=== PATIENT | male | born 1970 | race Two or more races ===

== ENCOUNTER 2025-04-29 03:30 | Inpatient (IN) | payer OTHER ==
[~2025-04-29] VITALS: Ht 165.1 cm; Wt 65.8 kg
[2025-04-29] MEDS ORDERED: GRALISE600 MG PO (03:35)
[2025-04-29] MEDS ORDERED: ATIVAN1 M1 PO (03:35)
[2025-04-29] MEDS ORDERED: RESTORIL30 MG PO (03:36)
[2025-04-29] MEDS ORDERED: BUSPIRONE HCL10 MG PO (03:36)
[2025-04-29] MEDS ORDERED: ADVIL100 M1 PO (03:36)
[2025-04-29] MEDS ORDERED: PAXIL20 MG PO (03:36)
[2025-04-29] MEDS ORDERED: TRAZODONE HCL150 MG PO (03:37)
[2025-04-29] MEDS ORDERED: PEPCID AC20 MG PO (03:37)
[2025-04-29] MEDS ORDERED: ELAVIL PO (03:37)
[2025-04-29] MEDS ORDERED: PROTONIX40 MG PO (03:37)
[2025-04-29] MEDS ORDERED: DICY20TA PO (03:38)
[2025-04-29] MEDS ORDERED: TRAMADOL HCL E100 M1 PO (03:38)
[2025-04-29] MEDS ORDERED: TRICOR145 MG PO (03:38)
[2025-04-29] MEDS ORDERED: HUMALOG100 UNIT/2 SQ (03:39)
[2025-04-29] MEDS ORDERED: TOUJEO SOL300 UNIT/1 (03:39)
[2025-04-29] MEDS ORDERED: MORPHINE SULFATE 4 MG/ML VIAL IV STA (04:56)
[2025-04-29 06:08] LABS: BASO % 0.6 % (0.1-1.2); EOS # 0.20 (0.04-0.54); EOS % 1.0 % (0.7-7.0); LYMPH # 2.14 (1.18-3.74); LYMPH % 11.2 % (19.3-53.1); MEAN PLATELET VOLUME 10.00 fl (9.4-12.4); MONO # 1.28 (0.24-0.82); MONO % 6.7 % (4.7-12.5); NEUT # 15.37 (1.56-6.13); NEUT % 80.1 % (34.0-71.1); RED CELL DISTRIBUTION WIDTH 13.5 % (11.6-14.4)
[2025-04-29 06:30] LABS: INR 1.18
[2025-04-29 06:33] LABS: ALT/SGPT 8.0 U/L (12-78); AST/SGOT 12.0 U/L (15-37); BILIRUBIN TOTAL 0.37 mg/dL (0.3-1.2); BUN CREA RATIO 10.0 (7.0-25.0); CREATININE SERUM 0.91 mg/dL (0.70-1.30); GFR 87.15; GLOBULINA 4.9 G/DL (2.4-3.5); GLUCOSE FASTING 130.0 mg/dL (65-100); OSMOLALITY SERUM 284.0 MOSM/KG (275-295)
[2025-04-29] MEDS ORDERED: 0.9 % SODIUM CHLORIDE 1,000 ML IV STA (06:48)
[2025-04-29] MEDS ORDERED: PIPERACILLIN/TAZOBACTAM SODIUM 3.375 GM VIAL IV STA (06:49)
[2025-04-29] MEDS ORDERED: POTASSIUM CHLORIDE 10 MEQ CAPSULE PO STA (06:49)
[2025-04-29] MEDS ORDERED: POTASSIUM CHLORIDE 10 MEQ CAPSULE PO ONE (10:30)
[2025-04-29 11:49] LABS: ABG PH 7.425 (7.35-7.45)
[2025-04-29 11:50] LABS: ABG PO2 94.0 mmHg (80-100); BICARBONATE 24.5 mmol/l (23-25); o2 21 %
[2025-04-29] MEDS ORDERED: PIPERACILLIN/TAZOBACTAM SODIUM 3.375 GM in DEXTROSE 5 % IN WATER 100 ML IV SCH (13:24)
[2025-04-29] MEDS ORDERED: MORPHINE SULFATE 2 MG/ML CARTRIDGE IV ONE (13:30)
[2025-04-29] MEDS ORDERED: 0.9 % SODIUM CHLORIDE 1,000 ML IV SCH (19:15)
[2025-04-29] MEDS ORDERED: INSULIN LISPRO 1,000 UNIT/10 ML UNITS SUBCUTANEO PRN (19:15)
[2025-04-29] MEDS ORDERED: MORPHINE SULFATE 2 MG/ML CARTRIDGE IV PRN (19:15)
[2025-04-29] MEDS ORDERED: DEXTROSE 50 % IN WATER 0.5 G/ML DISP.SYRIN IV PRN (19:15)
[2025-04-29] MEDS ORDERED: KETOROLAC TROMETHAMINE 15 MG VIAL IU PRN (19:15)
[2025-04-29] MEDS ORDERED: TEMAZEPAM 15 MG CAPSULE PO SCH (21:00)
[2025-04-30 03:30] VITALS: BP 130/67
[2025-04-30 03:32] LABS: BASO % 0.6 % (0.1-1.2); EOS # 0.17 (0.04-0.54); EOS % 0.9 % (0.7-7.0); LYMPH # 1.35 (1.18-3.74); LYMPH % 6.8 % (19.3-53.1); MEAN PLATELET VOLUME 10.10 fl (9.4-12.4); MONO # 1.38 (0.24-0.82); MONO % 7.0 % (4.7-12.5); NEUT # 16.68 (1.56-6.13); NEUT % 84.1 % (34.0-71.1); RED CELL DISTRIBUTION WIDTH 13.7 % (11.6-14.4)
[2025-04-30 03:58] LABS: ALT/SGPT 6.0 U/L (12-78); AST/SGOT 15.0 U/L (15-37); BILIRUBIN TOTAL 0.35 mg/dL (0.3-1.2); BUN CREA RATIO 11.0 (7.0-25.0); CREATININE SERUM 0.75 mg/dL (0.70-1.30); GFR 108.94; GLOBULINA 5.1 G/DL (2.4-3.5); GLUCOSE FASTING 102.0 mg/dL (65-100); OSMOLALITY SERUM 282.0 MOSM/KG (275-295)
[2025-04-30 08:53] VITALS: BP 129/64; O2SAT 99
[2025-04-30] MEDS ORDERED: FAMOTIDINE/PF 20 MG/2 ML VIAL IV SCH (09:00)
[2025-04-30] MEDS ORDERED: POTASSIUM CHLORIDE IN WATER 100 ML IV SCH (09:00)
[2025-04-30] MEDS ORDERED: KETOROLAC TROMETHAMINE 30 MG VIAL IV PRN (10:30)
[2025-04-30 17:58] VITALS: BP 104/49
[2025-05-01 00:32] VITALS: BP 90/50
[2025-05-01 10:11] VITALS: BP 103/59; O2SAT 97
[2025-05-01] MEDS ORDERED: MORPHINE SULFATE 2 MG/ML SYRINGE IV SCH (12:53)
[2025-05-01] MEDS ORDERED: SUCRALFATE 1 G TABLET PO SCH (13:00)
[2025-05-01 13:54] LABS: AST/SGOT 12 U/L (15-37); BILIRUBIN TOTAL 0.34 mg/dL (0.3-1.2); BUN CREA RATIO 10 (7.0-25.0); CREATININE SERUM 0.77 mg/dL (0.70-1.30); GFR 105.68; GLOBULINA 4.7 G/DL (2.4-3.5)
[2025-05-01 13:57] LABS: ALT/SGPT < 6 U/L (12-78); GLUCOSE FASTING 239 mg/dL (65-100); OSMOLALITY SERUM 291 MOSM/KG (275-295)
[2025-05-01] MEDS ORDERED: fentaNYL CITRATE 50 MCG/ML AMPUL IV PUSH ONE (16:30)
[2025-05-01] MEDS ORDERED: MIDAZOLAM HCL 2 MG/2 ML VIAL IV PUSH ONE (16:30)
[2025-05-01] MEDS ORDERED: PANTOPRAZOLE SODIUM 40 MG/VIAL VIAL IV SCH (17:00)
[2025-05-01 18:56] VITALS: BP 121/77
[2025-05-01] MEDS ORDERED: MORPHINE SULFATE 4 MG/ML VIAL IV SCH (23:00)
[2025-05-02 02:27] VITALS: BP 96/56; O2SAT 93
[2025-05-02 08:34] VITALS: BP 126/68; O2SAT 95
[2025-05-02 11:18] LABS: BASO % 1.0 % (0.1-1.2); EOS # 0.32 (0.04-0.54); EOS % 5.5 % (0.7-7.0); LYMPH # 1.53 (1.18-3.74); LYMPH % 26.2 % (19.3-53.1); MEAN PLATELET VOLUME 10.00 fl (9.4-12.4); MONO # 0.44 (0.24-0.82); MONO % 7.5 % (4.7-12.5); NEUT # 3.44 (1.56-6.13); NEUT % 58.9 % (34.0-71.1); RED CELL DISTRIBUTION WIDTH 13.9 % (11.6-14.4)
[2025-05-02 12:29] LABS: AST/SGOT 11 U/L (15-37); BILIRUBIN TOTAL 0.21 mg/dL (0.3-1.2); BUN CREA RATIO 8 (7.0-25.0); CREATININE SERUM 0.77 mg/dL (0.70-1.30); GFR 105.68; GLOBULINA 4.1 G/DL (2.4-3.5)
[2025-05-02 12:31] LABS: ALT/SGPT < 6 U/L (12-78); GLUCOSE FASTING 242 mg/dL (65-100); OSMOLALITY SERUM 292 MOSM/KG (275-295)
[2025-05-02 19:20] VITALS: BP 113/62
[2025-05-03] MEDS ORDERED: MORPHINE SULFATE 2 MG/ML CARTRIDGE IV PRN (00:15)
[2025-05-03 02:19] VITALS: BP 133/72; O2SAT 96
[2025-05-03 08:18] VITALS: BP 111/68
[2025-05-03] MEDS ORDERED: POTASSIUM CHLORIDE IN WATER 100 ML IV SCH (12:00)
[2025-05-03] MEDS ORDERED: MORPHINE SULFATE 4 MG/ML CARTRIDGE IV PRN (12:15)
[2025-05-03 17:40] VITALS: BP 130/65; O2SAT 96
[2025-05-03] MEDS ORDERED: MIDAZOLAM HCL 2 MG/2 ML VIAL IV PUSH ONE (22:30)
[2025-05-03] MEDS ORDERED: fentaNYL CITRATE 50 MCG/ML AMPUL IV PUSH ONE (22:45)
[2025-05-04 02:44] VITALS: BP 128/78; O2SAT 96
[2025-05-04 08:42] VITALS: BP 126/65
[2025-05-04 16:37] VITALS: BP 114/65; O2SAT 96
[2025-05-04 23:54] LABS: ALT/SGPT 7.0 U/L (12-78); AST/SGOT 9.0 U/L (15-37); BILIRUBIN TOTAL 0.26 mg/dL (0.3-1.2); BUN CREA RATIO 3.0 (7.0-25.0); CREATININE SERUM 0.99 mg/dL (0.70-1.30); GFR 79.08; GLOBULINA 4.2 G/DL (2.4-3.5); OSMOLALITY SERUM 295.0 MOSM/KG (275-295)
[2025-05-04 23:56] LABS: GLUCOSE FASTING 269.0 mg/dL (65-100)
[2025-05-05 01:16] VITALS: BP 150/72; O2SAT 97
[2025-05-05 08:39] VITALS: BP 107/61
[2025-05-05] MEDS ORDERED: GABAPENTIN 800 MG TABLET PO SCH (09:00)
[2025-05-05] MEDS ORDERED: MORPHINE SULFATE 4 MG/ML CARTRIDGE IV PRN (14:30)
[2025-05-05 16:00] VITALS: BP 131/66
[2025-05-05] MEDS ORDERED: PANTOPRAZOLE SODIUM 40 MG TABLET.DR PO SCH (17:00)
[2025-05-06 00:43] VITALS: BP 130/79; O2SAT 98
[2025-05-06 10:08] VITALS: BP 120/60; O2SAT 98
[2025-05-06 18:25] VITALS: BP 143/75; O2SAT 97
[2025-05-07 01:20] VITALS: BP 130/63; O2SAT 94
[2025-05-07 07:59] LABS: BASO % 0.7 % (0.1-1.2); EOS # 0.48 (0.04-0.54); EOS % 4.7 % (0.7-7.0); LYMPH # 1.92 (1.18-3.74); LYMPH % 19.0 % (19.3-53.1); MEAN PLATELET VOLUME 10.70 fl (9.4-12.4); MONO # 0.58 (0.24-0.82); MONO % 5.7 % (4.7-12.5); NEUT # 7.01 (1.56-6.13); NEUT % 69.3 % (34.0-71.1); RED CELL DISTRIBUTION WIDTH 13.7 % (11.6-14.4)
[2025-05-07 08:26] LABS: BUN CREA RATIO 3.0 (7.0-25.0); CREATININE SERUM 0.76 mg/dL (0.70-1.30); GFR 107.29; GLUCOSE FASTING 132.0 mg/dL (65-100); OSMOLALITY SERUM 285.0 MOSM/KG (275-295)
[2025-05-07 10:27] VITALS: BP 130/57; O2SAT 96
[2025-05-07] MEDS ORDERED: MEROPENEM 500 MG/VIAL VIAL IV STA (11:13)
[2025-05-07] MEDS ORDERED: INSULIN LISPRO 1,000 UNIT/10 ML UNITS SUBCUTANEO PRN (13:00)
[2025-05-07] MEDS ORDERED: DEXTROSE 50 % IN WATER 0.5 G/ML VIAL IV PRN (13:00)
[2025-05-07] MEDS ORDERED: MORPHINE SULFATE 4 MG/ML CARTRIDGE IV PRN (15:45)
[2025-05-07 17:58] VITALS: BP 143/68; O2SAT 97
[2025-05-07] MEDS ORDERED: MEROPENEM 500 MG/VIAL VIAL IV SCH (18:00)
[2025-05-08 01:35] VITALS: BP 147/70; O2SAT 98
[2025-05-08] MEDS ORDERED: MORPHINE SULFATE 4 MG/ML CARTRIDGE IV PRN (08:17)
[2025-05-08] MEDS ORDERED: DIATRIZOATE MEGLUMINE, SODIUM 30 ML BOTTLE PO NR (09:00)
[2025-05-08 10:22] VITALS: BP 151/71; O2SAT 99
[2025-05-08] MEDS ORDERED: DIPHENHYDRAMINE HCL 50 MG/ML VIAL 1ML IV NR (11:30)
[2025-05-08] MEDS ORDERED: METHYLPREDNISOLONE SOD SUCC 125 MG VIAL IV NR (11:30)
[2025-05-08 19:00] VITALS: BP 134/70
[2025-05-09 03:24] VITALS: BP 149/72; O2SAT 95
[2025-05-09 09:00] VITALS: BP 149/60; O2SAT 91
[2025-05-09 14:10] VITALS: O2SAT 96
[2025-05-09 17:37] VITALS: BP 150/69
[2025-05-10 03:39] VITALS: BP 119/77; BP 169/79; O2SAT 90; O2SAT 92
[2025-05-10 08:00] VITALS: BP 158/78; O2SAT 86
[2025-05-10 10:21] LABS: ALT/SGPT 8.0 U/L (12-78); AST/SGOT 20.0 U/L (15-37); BILIRUBIN TOTAL 0.37 mg/dL (0.3-1.2); BUN CREA RATIO 6.0 (7.0-25.0); CREATININE SERUM 0.88 mg/dL (0.70-1.30); GFR 90.59; GLOBULINA 4.8 G/DL (2.4-3.5); GLUCOSE FASTING 334.0 mg/dL (65-100); OSMOLALITY SERUM 284.0 MOSM/KG (275-295)
[2025-05-10 11:10] VITALS: O2SAT 92
[2025-05-10 16:19] VITALS: BP 128/56; O2SAT 87
[2025-05-10] MEDS ORDERED: MORPHINE SULFATE 4 MG/ML CARTRIDGE IV PRN (16:45)
[2025-05-10 20:39] LABS: MONONUCLEAR 81.2 %; POLYMORPHONUCLEAR 18.8 %
[2025-05-10 21:00] LABS: GLU PLEURAL FLUID 218.0 mg/dl; LDH PLEURAL FLUID 53.0 U/L; TP PLEURAL FLUID 2.3 g/dl
[2025-05-10] MEDS ORDERED: REMDESIVIR 100 MG VIAL IV ONE (21:15)
[2025-05-10 21:27] LABS: BASO % 0.5 % (0.1-1.2); EOS # 0.05 (0.04-0.54); EOS % 0.6 % (0.7-7.0); LYMPH # 1.60 (1.18-3.74); LYMPH % 18.4 % (19.3-53.1); MEAN PLATELET VOLUME 10.30 fl (9.4-12.4); MONO # 0.52 (0.24-0.82); MONO % 6.0 % (4.7-12.5); NEUT # 6.46 (1.56-6.13); NEUT % 74.2 % (34.0-71.1); RED CELL DISTRIBUTION WIDTH 14.0 % (11.6-14.4)
[2025-05-11 03:40] VITALS: BP 138/61; O2SAT 87
[2025-05-11] MEDS ORDERED: DEXAMETHASONE 4 MG TABLET PO SCH (09:00)
[2025-05-11 09:37] VITALS: BP 131/64; O2SAT 85
[2025-05-11] MEDS ORDERED: REMDESIVIR 100 MG VIAL IV SCH (17:00)
[2025-05-11 17:29] VITALS: BP 160/72; O2SAT 96
[2025-05-11] MEDS ORDERED: ENOXAPARIN SODIUM 40 MG/0.4 ML SYRINGE SUBCUTANEO SCH (20:13)
[2025-05-11 21:41] VITALS: O2SAT 88; O2SAT 97
[2025-05-12] VITALS (7 sets, daily range): BP systolic 93–130; BP diastolic 59–67; O2SAT 88–97
[2025-05-12 08:05] LABS: BASO % 0.2 % (0.1-1.2); EOS # 0.00 (0.04-0.54); EOS % 0.0 % (0.7-7.0); LYMPH # 1.32 (1.18-3.74); LYMPH % 12.0 % (19.3-53.1); MEAN PLATELET VOLUME 11.50 fl (9.4-12.4); MONO # 0.68 (0.24-0.82); MONO % 6.2 % (4.7-12.5); NEUT # 8.93 (1.56-6.13); NEUT % 81.1 % (34.0-71.1); RED CELL DISTRIBUTION WIDTH 13.9 % (11.6-14.4)
[2025-05-12 08:06] LABS: ALT/SGPT 8.0 U/L (12-78); AST/SGOT 17.0 U/L (15-37); BILIRUBIN TOTAL 0.44 mg/dL (0.3-1.2); BUN CREA RATIO 14.0 (7.0-25.0); CREATININE SERUM 0.79 mg/dL (0.70-1.30); GFR 102.6; GLOBULINA 4.2 G/DL (2.4-3.5)
[2025-05-12 08:23] LABS: GLUCOSE FASTING 395.0 mg/dL (65-100); OSMOLALITY SERUM 290.0 MOSM/KG (275-295)
[2025-05-12] MEDS ORDERED: LINEZOLID 600 MG TABLET PO SCH (17:00)
[2025-05-12] MEDS ORDERED: INSULIN GLARGINE,HUM.REC.ANLOG 1,000 UNITS/10 ML UNITS SUBCUTANEO SCH (17:11)
[2025-05-12] MEDS ORDERED: INSULIN LISPRO 1,000 UNIT/10 ML UNITS SUBCUTANEO SCH (17:12)
[2025-05-13 01:38] VITALS: BP 104/63; O2SAT 97
[2025-05-13] MEDS ORDERED: MORPHINE SULFATE 4 MG/ML CARTRIDGE IV PRN (06:00)
[2025-05-13 08:07] VITALS: BP 122/70
[2025-05-13] MEDS ORDERED: KETOROLAC TROMETHAMINE 30 MG VIAL IU ONE (09:30)
[2025-05-13] MEDS ORDERED: INSULIN LISPRO 1,000 UNIT/10 ML UNITS SUBCUTANEO SCH (12:00)
[2025-05-13 16:31] VITALS: BP 98/51; O2SAT 95
[2025-05-14 02:00] VITALS: BP 145/61; O2SAT 93
[2025-05-14 09:08] VITALS: BP 164/70
[2025-05-14 16:19] VITALS: BP 142/58; O2SAT 90
[2025-05-14] MEDS ORDERED: TEMAZEPAM 15 MG CAPSULE PO SCH (21:00)
[2025-05-15 02:56] VITALS: BP 117/61; O2SAT 95
[2025-05-15] MEDS ORDERED: INSULIN LISPRO 1,000 UNIT/10 ML UNITS SUBCUTANEO SCH (08:00)
== END 2025-05-15 09:13 | disposition home or self-care (01) | DRG 438 ==
LOC: ER 03:30 → SEC-K 20:45 → MEDJ 20:45
PROVIDERS: Emergency Medicine; General Practice; Internal Medicine; Internal Medicine Infectious Disease; Radiology Vascular & Interventional Radiology; Student in an Organized Health Care Education/Training Program; ADMIT Internal Medicine; ATTEND Internal Medicine
PROC: BW21ZZZ Computerized Tomography (CT Scan) of Abdomen and Pelvis (ICD-10-PCS; 2025-04-29)
PROC: 02HV33Z Insertion of Infusion Device into Superior Vena Cava, Percutaneous Approach (ICD-10-PCS; 2025-05-02)
PROC: B548ZZA Ultrasonography of Superior Vena Cava, Guidance (ICD-10-PCS; 2025-05-02)
PROC: 0W9F30Z Drainage of Abdominal Wall with Drainage Device, Percutaneous Approach (ICD-10-PCS; principal; 2025-05-04)
PROC: BW21ZZZ Computerized Tomography (CT Scan) of Abdomen and Pelvis (ICD-10-PCS; 2025-05-08)
PROC: 0W9B3ZZ Drainage of Left Pleural Cavity, Percutaneous Approach (ICD-10-PCS; 2025-05-10)
PROC: XW033E5 Introduction of Remdesivir Anti-infective into Peripheral Vein, Percutaneous Approach, New Technology Group 5 (ICD-10-PCS; 2025-05-10)
PROC: 8E0ZXY6 Isolation (ICD-10-PCS; 2025-05-10)
PROC: 4A12X4Z Monitoring of Cardiac Electrical Activity, External Approach (ICD-10-PCS; 2025-05-11)
PROC: BB24YZZ Computerized Tomography (CT Scan) of Bilateral Lungs using Other Contrast (ICD-10-PCS; 2025-05-11)
DX: K86.3 Pseudocyst of pancreas (principal); J12.82 Pneumonia due to coronavirus disease 2019; U07.1 COVID-19; L02.211 Cutaneous abscess of abdominal wall; J90 Pleural effusion, not elsewhere classified; K86.1 Other chronic pancreatitis; I88.0 Nonspecific mesenteric lymphadenitis; E11.65 Type 2 diabetes mellitus with hyperglycemia; B96.20 Unspecified Escherichia coli [E. coli] as the cause of diseases classified elsewhere; Z79.4 Long term (current) use of insulin
CPT/HCPCS: 74176 ×2; 32555; 93228; 71260; 36573; J0248